=== PATIENT | female | born 1980 ===

== ENCOUNTER 2017-03-08 19:29 | Emergency (ER) | payer OTHER ==
[2017-03-08 20:05] VITALS: TEMP 98.5
--- NOTE | 2017-03-08 21:50 | C.PDOC ---
History Of Present Illness 36 yr old female with history of vertigo, presents to the ER with complaints of a headache for the past 1 month. Patient states she was seen by her PMD who prescribed her migraine medicine but had no relief. Patient states the pain is intermittent and greater on the left side of the head and face. Patient currently denies vision changes, nausea, vomiting, neck pain, dizziness, weakness or numbness. Time Seen by Provider: 03/08/17 20:38 Chief Complaint (Nursing): Headache History Per: Patient History/Exam Limitations: no limitations Onset/Duration Of Symptoms: Days (1 month) Past Medical History Reviewed: Historical Data, Nursing Documentation, Vital Signs Vital Signs: Last Vital Signs Temp 98.5 F 03/08/17 20:05 Pulse 72 03/08/17 23:14 Resp 18 03/08/17 23:14 BP 106/66 03/08/17 23:14 Pulse Ox 100 03/09/17 05:04 Family History: States: No Known Family Hx - Social History Hx Alcohol Use: No Hx Substance Use: No - Immunization History Hx Tetanus Toxoid Vaccination: No Hx Influenza Vaccination: No Hx Pneumococcal Vaccination: No Review Of Systems Except As Marked, All Systems Reviewed And Found Negative. Eyes: Negative for: Vision Change Gastrointestinal: Negative for: Nausea, Vomiting Musculoskeletal: Negative for: Neck Pain Neurological: Positive for: Headache. Negative for: Weakness, Numbness, Dizziness Physical Exam - Physical Exam Appears: Non-toxic, No Acute Distress Skin: Warm, Dry Head: Atraumatic, Normacephalic, No Swelling, No Abrasion Eye(s): bilateral: Normal Inspection, PERRL, EOMI Ear(s): Bilateral: Normal Oral Mucosa: Moist Neck: Normal, Normal ROM, Supple Chest: Symmetrical, No Tenderness Cardiovascular: Rhythm Regular, No Murmur Respiratory: Normal Breath Sounds, No Rales, No Rhonchi, No Stridor, No Wheezing Extremity: Normal ROM, No Swelling Neurological/Psych: Oriented x3, Normal Speech, Normal Motor Gait: Steady ED Course And Treatment O2 Sat by Pulse Oximetry: 100 (RA) Pulse Ox Interpretation: Normal - CT Scan/US CT Head Other Rad Studies (CT/US): Read By Radiologist, Radiology Report Reviewed CT/US Interpretation: IMPRESSION: 1. No acute intracranial abnormality. 2. Incidental/non-acute findings are described above. Medical Decision Making Medical Decision Making: PLAN: * CT - Head * Motrin PO Pt feels better and CT results given to pt who is advised tofollow up ke Dr Britton for Neuro referral as needed. Pt understands to return if symptoms worsen Disposition Counseled Patient/Family Regarding: Diagnosis, Need For Followup, Rx Given - Disposition Referrals: Gera Britton MD [Medical Doctor] - Disposition: HOME/ ROUTINE Disposition Time: 23:33 Condition: STABLE Additional Instructions: take pain meds as directed Continue other meds Return to ER if worse Prescriptions: Ibuprofen [Motrin] 600 mg PO Q6H #30 tab Instructions: Acute Headache (ED) Forms: [employer] (Austrian) - Clinical Impression Clinical Impression: Headache - PA / ARCHITECTURAL EXAMINER / Resident Statement MD/DO has reviewed & agrees with the documentation as recorded. - Scribe Statement The provider has reviewed the documentation as recorded by the Scribe Desi Boles All medical record entries made by the Scribe were at my direction and personally dictated by me. I have reviewed the chart and agree that the record accurately reflects my personal performance of the history, physical exam, medical decision making, and the department course for this patient. I have also personally directed, reviewed, and agree with the discharge instructions and disposition.
--- NOTE | 2017-03-08 23:00 | CT ---
EXAM: CT Head Without Intravenous Contrast CLINICAL HISTORY: 36 years old, female; Pain and signs and symptoms; Dizziness; Headache; Headache not specified; Additional info: Headache, dizzy TECHNIQUE: Axial computed tomography images of the head/brain without intravenous contrast. All CT scans at this facility use one or more dose reduction techniques, viz.: automated exposure control; ma/kV adjustment per patient size (including targeted exams where dose is matched to indication; i.e. head); or iterative reconstruction technique. COMPARISON: No relevant prior studies available. FINDINGS: Brain: No intracranial hemorrhage. No mass. No definite edema. Ventricles: No hydrocephalus. Bones/joints: No acute fracture. Soft tissues: Unremarkable. Sinuses: No acute sinusitis. Mastoid air cells: Minimal fluid within RIGHT mastoid. Osteoma within RIGHT mastoid. Orbits: Unremarkable as visualized. IMPRESSION: 1. No acute intracranial abnormality. 2. Incidental/non-acute findings are described above.
[2017-03-08 23:15] VITALS: BP 106/66; PULSE 72; RESP 18
[2017-03-08 23:36] VITALS: O2SAT 100
== END 2017-03-09 00:10 | disposition home or self-care (01) ==
LOC: C.ER 19:29
DX: R51 Headache (principal)

== ENCOUNTER 2017-09-06 09:50 | Emergency (ER) | payer OTHER ==
--- NOTE | 2017-09-06 11:21 | C.PDOC ---
History Of Present Illness 36-year-old female, presents to the emergency department with complaints of three-day history of tactile fever, bodyaches, non-productive cough, and upper back pain with coughing. Patient states she is taking Theraflu at home with no relief. Denies nausea/vomiting, chest pain, rashes, recent travel, or any other associated symptoms. No other complaints at this time. HPI: Influenza Time Seen by Provider: 09/06/17 10:03 Chief Complaint: Cough, Cold, Congestion History Per: Patient Exam Limitations: no limitations Past Medical History Reviewed: Historical Data, Nursing Documentation, Vital Signs Vital Signs: Last Vital Signs Temp 98 F 09/06/17 09:53 Pulse 67 09/06/17 09:53 Resp 20 09/06/17 09:53 BP 108/71 09/06/17 09:53 Pulse Ox 97 09/06/17 09:53 Family History: States: No Known Family Hx - Social History Hx Alcohol Use: No Hx Substance Use: No - Immunization History Hx Tetanus Toxoid Vaccination: No Hx Influenza Vaccination: No Hx Pneumococcal Vaccination: No Review Of Systems Except As Marked, All Systems Reviewed And Found Negative. Constitutional: Positive for: Fever, Malaise Cardiovascular: Negative for: Chest Pain Respiratory: Positive for: Cough. Negative for: Sputum Gastrointestinal: Negative for: Vomiting Musculoskeletal: Positive for: Back Pain Neurological: Negative for: Weakness, Numbness, Headache, Dizziness Physical Exam - Physical Exam Appears: Non-toxic, No Acute Distress Skin: Normal Color, Warm, Dry, No Rash Head: Normacephalic Eye(s): bilateral: PERRL Nose: Normal, No Flaring, No Discharge Oral Mucosa: Moist Lips: Normal Appearing Throat: No Erythema, No Exudate Neck: Normal ROM Cardiovascular: Rhythm Regular, No Murmur Respiratory: Normal Breath Sounds, No Accessory Muscle Use Gastrointestinal/Abdominal: Soft, No Tenderness Extremity: Normal ROM, No Deformity, No Swelling Neurological/Psych: Oriented x3, Normal Speech Medical Decision Making Medical Decision Making: Impression Influenza Plan: * Chest X-Ray * Influenza AB STAT * Motrin, Tamiflu * Reassess and Disposition - ECG O2 Sat by Pulse Oximetry: 97 (RA) Pulse Ox Interpretation: Normal Disposition Counseled Patient/Family Regarding: Studies Performed, Diagnosis, Need For Followup, Rx Given - Disposition Referrals: [facility] [Outside] Disposition: HOME/ ROUTINE Disposition Time: 11:19 Condition: STABLE Additional Instructions: follow up with your doctor in 2 days call to make an appointment take medications as prescribed rests, drink plenty of fluids return to ER if symptoms worsens or progress Prescriptions: Naproxen [Naprosyn] 500 mg PO BID PRN #16 tab PRN Reason: Pain, Moderate (4-7) Oseltamivir Phosphate [Tamiflu] 75 mg PO BID #10 capsule Instructions: Influenza (ED) Forms: Gen Discharge Inst Estonian, [employer] (Estonian), Work Excuse Print Language: MAORI - Clinical Impression Clinical Impression: Influenza-like illness - Scribe Statement The provider has reviewed the documentation as recorded by the Scribe (Roxi Trotter) All medical record entries made by the Scribe were at my direction and personally dictated by me. I have reviewed the chart and agree that the record accurately reflects my personal performance of the history, physical exam, medical decision making, and the department course for this patient. I have also personally directed, reviewed, and agree with the discharge instructions and disposition.
[2017-09-06 12:42] VITALS: BP 106/78; PULSE 71; RESP 8; TEMP 98.8; O2SAT 97
--- NOTE | 2017-09-06 13:55 | RAD ---
Chest x-ray two views History: Cough. Comparison: None available. Findings: No focal infiltrate or effusion. Heart size within normal limits. Right paratracheal prominence may represent prominent vasculature. Clinical correlation. Nodular densities at the bilateral lung bases likely represent nipple shadows. Impression: No focal infiltrate or effusion.
== END 2017-09-06 11:31 | disposition home or self-care (01) ==
LOC: C.ER 09:50
DX: J11.1 Influenza due to unidentified influenza virus with other respiratory manifestations (principal)

== ENCOUNTER 2017-09-09 13:53 | Emergency (ER) | payer OTHER ==
[2017-09-09 14:01] VITALS: O2SAT 99
--- NOTE | 2017-09-09 14:40 | C.PDOC ---
History Of Present Illness 36 year old female brought to the ED today by her friend with a complaint of pleuritic chest pain with cough for 5 days. Per her friend, the patient has been seen in the ED on the day of onset, "she had Chest X-Ray, which was negative" she was given pain killers but the symptoms of N/V/D are still present. Time Seen by Provider: 09/09/17 14:02 Chief Complaint (Nursing): Abdominal Pain History Per: Patient, Other (Friend) History/Exam Limitations: clinical condition Onset/Duration Of Symptoms: Days (x 5) Current Symptoms Are (Timing): Still Present Associated Symptoms: Nausea, Vomiting, Diarrhea, Other (Dizziness) Exacerbating Factors: Cough Past Medical History Vital Signs: Last Vital Signs Temp 97.9 F 09/09/17 17:14 Pulse 66 09/09/17 17:14 Resp 18 09/09/17 17:14 BP 98/61 L 09/09/17 17:14 Pulse Ox 99 09/09/17 17:14 Family History: States: Unknown Family Hx - Social History Hx Alcohol Use: No Hx Substance Use: No - Immunization History Hx Tetanus Toxoid Vaccination: No Hx Influenza Vaccination: No Hx Pneumococcal Vaccination: No Review Of Systems Respiratory: Positive for: Cough, Pleuritic Pain Gastrointestinal: Positive for: Nausea, Vomiting, Diarrhea Physical Exam - Physical Exam Appears: Non-toxic Skin: No Rash Head: Normacephalic Neck: Supple Chest: Symmetrical Cardiovascular: Rhythm Regular Respiratory: Normal Breath Sounds Gastrointestinal/Abdominal: Soft, No Tenderness Neurological/Psych: Oriented x3 ED Course And Treatment - Laboratory Results Result Diagrams: 09/09/17 14:53 09/09/17 14:53 O2 Sat by Pulse Oximetry: 99 (RA) Pulse Ox Interpretation: Normal Medical Decision Making Medical Decision Making: Plan: --EKG --CMP --CBC --CXR --Ketorolac 30mg IVP --Ondasteron 4mg IVP --Sodium Chloride 1,000mL IV --Saline Lock, 3 mL --XR Abd --Urinalysis --Urine HCG Time: 15:44 Abd X-Ray FINDINGS: BOWEL: Current study reveals no evidence of acute mechanical bowel obstruction. Multiple nondistended air-filled loops of small bowel present suggesting minor ileus no evidence of free intraperitoneal air seen under the diaphragmatic surfaces BONES: Normal. OTHER FINDINGS: None. IMPRESSION: No evidence of acute mechanical bowel obstruction. Suspect minor ileus ; rule out enteritis given the patient's history of abdominal pain with vomiting new. No evidence of free intraperitoneal air. Chest X-Ray FINDINGS: LUNGS: No active pulmonary disease. PLEURA: No significant pleural effusion identified. No pneumothorax apparent. CARDIOVASCULAR: Normal. OSSEOUS STRUCTURES: No significant abnormalities. VISUALIZED UPPER ABDOMEN: No gross free intraperitoneal air seen under the diaphragmatic surfaces. OTHER FINDINGS: None. IMPRESSION: No active disease. On re-exam, the patient reports improvement of symptoms. Patient is sleeping the bed comfortably. Lungs are CTA, HEart is RRR. abdomen is soft, non-tender and the patient is tolerating Po well. Ambulatory in the ED with steady gait. Follow up with the medical doctor within 1-2 days. Return if worsened. Disposition - Disposition Referrals: Gera Britton MD [Medical Doctor] - Disposition: HOME/ ROUTINE Disposition Time: 17:02 Condition: STABLE Additional Instructions: Follow up with the medical doctor within 1-2 days. Return if worsened. Prescriptions: Acetaminophen [Tylenol] 325 mg PO Q6 PRN #30 tab PRN Reason: Fever >100.4 F Ondansetron ODT [Zofran ODT] 1 odt PO BID PRN #10 odt PRN Reason: Nausea/Vomiting Instructions: Flu, Adult (DC) Forms: [employer] (Romanian) Print Language: NIUEAN - Clinical Impression Clinical Impression: Influenza, Vomiting, Diarrhea, Viral syndrome - PA / WEB SIZER / Resident Statement MD/DO has reviewed & agrees with the documentation as recorded. - Scribe Statement The provider has reviewed the documentation as recorded by the Scribe Leigh Collazo All medical record entries made by the Scribnaida were at my direction and personally dictated by me. I have reviewed the chart and agree that the record accurately reflects my personal performance of the history, physical exam, medical decision making, and the department course for this patient. I have also personally directed, reviewed, and agree with the discharge instructions and disposition.
[2017-09-09] MEDS ORDERED: Sodium Chloride 0.9% 1,000 ML IV ONE (14:41)
[2017-09-09 15:02] LABS: BASO % 0.7 % (0.0-2.0); EOS # 0.1 K/uL (0.0-0.7); EOS % 2.4 % (0.0-4.0); HEMOGLOBIN 12.2 g/dL (11.0-16.0); LYMPH # 1.8 K/uL (1.0-4.3); LYMPH % 29.4 % (20.0-40.0); MEAN CELL VOLUME 90.6 fL (81.0-99.0); MEAN CORPUSCULAR HEMOGLOBIN 30.4 pg (27.0-31.0); MEAN CORPUSCULAR HGB CONC 33.6 g/dL (33.0-37.0); MEAN PLATELET VOLUME 8.4 fL (7.2-11.7); MONO # 0.5 K/uL (0.0-0.8); MONO % 7.4 % (0.0-10.0); NEUT # 3.7 K/uL (1.8-7.0); NEUT % 60.1 % (50.0-75.0); NRBC % 0.1 % (0.0-2.0); RBC 4.02 Mil/uL (3.80-5.20); RED CELL DISTRIBUTION WIDTH 14.5 % (11.5-14.5); WHITE BLOOD COUNT 6.2 K/uL (4.8-10.8)
[2017-09-09 15:09] LABS: HCG,QUALITATIVE URINE NEGATIVE (NEGATIVE)
[2017-09-09 15:12] LABS: SQUAMOUS EPITHIAL 2 /hpf (0-5); URINE BACTERIA FEW (<OCC); URINE BILIRUBIN NEGATIVE (NEGATIVE); URINE BLOOD NEGATIVE (NEGATIVE); URINE CLARITY Clear (Clear); URINE COLOR Colorless (YELLOW); URINE GLUCOSE (UA) NORMAL (Normal); URINE LEUKOCYTE ESTERASE NEG Leu/uL (Negative); URINE PROTEIN NEGATIVE (NEGATIVE); URINE UROBILINOGEN NORMAL mg/dL (0.2-1.0)
[2017-09-09] MEDS ORDERED: Sodium Chloride 0.9% 1,000 ML ONE (15:14)
--- NOTE | 2017-09-09 15:40 | RAD ---
HISTORY: Abdominal pain and vomiting. COMPARISON: No prior. FINDINGS: BOWEL: Current study reveals no evidence of acute mechanical bowel obstruction. Multiple nondistended air-filled loops of small bowel present suggesting minor ileus no evidence of free intraperitoneal air seen under the diaphragmatic surfaces BONES: Normal. OTHER FINDINGS: None. IMPRESSION: No evidence of acute mechanical bowel obstruction. Suspect minor ileus ; rule out enteritis given the patient's history of abdominal pain with vomiting new. No evidence of free intraperitoneal air
--- NOTE | 2017-09-09 15:41 | RAD ---
HISTORY: SOB, chest pain COMPARISON: Comparison chest 09/06/2017 TECHNIQUE: Chest PA and lateral FINDINGS: LUNGS: No active pulmonary disease. PLEURA: No significant pleural effusion identified. No pneumothorax apparent. CARDIOVASCULAR: Normal. OSSEOUS STRUCTURES: No significant abnormalities. VISUALIZED UPPER ABDOMEN: No gross free intraperitoneal air seen under the diaphragmatic surfaces. OTHER FINDINGS: None. IMPRESSION: No active disease.
[2017-09-09 15:51] LABS: ALB/GLOB RATIO 1.1 (1.0-2.1); ALBUMIN 3.8 g/dL (3.5-5.0); ALT/SGPT 33 U/L (9-52); AST/SGOT 34 U/L (14-36); BLOOD UREA NITROGEN 7 mg/dL (7-17); CALCIUM 8.3 mg/dl (8.6-10.4); GFR AFRICAN-AMERICAN > 60; GFR NON-AFRICAN AMERICAN > 60
[2017-09-09 17:14] VITALS: BP 98/61; PULSE 66; RESP 18; TEMP 97.9
--- NOTE | 2017-09-10 11:55 | CARD ---
APPROVED REPORT EKG Measurement Heart [id number] <Conclusion> Sinus bradycardia Otherwise normal ECG
== END 2017-09-09 17:30 | disposition home or self-care (01) ==
LOC: C.ER 13:53
DX: J11.1 Influenza due to unidentified influenza virus with other respiratory manifestations (principal); R11.10 Vomiting, unspecified; R19.7 Diarrhea, unspecified
CPT/HCPCS: 71046; 74018; 80053; 81001; 84703; 85025; 93005; 96361; 96374; 96375; 99284; J1885; J2405; J7040